=== PATIENT | male | born 1990 | race American Indian/Alaskan Native ===

== ENCOUNTER 2017-02-13 03:04 | Emergency (ER) | payer SELFPAY ==
[2017-02-13 04:24] LABS: Basophils % (Auto) 0.4 % (0.0-1.8); Eosinophils % (Auto) 3.1 % (0.0-4.3); Hematocrit 39.3 % (35.5-45.6); Hemoglobin 12.8 gm/dl (11.8-15.2); Mean Corpuscular HGB Conc 33 % (32-34); Mean Corpuscular Hemoglobin 29 pg (28-32); Mean Corpuscular Volume 89 fl (84-94); Platelet Count 135 K/mm3 (140-440); Red Blood Count 4.42 M/mm3 (3.65-5.03); Red Cell Distribution Width 13.9 % (13.2-15.2); White Blood Count 5.5 K/mm3 (4.5-11.0)
[2017-02-13 04:32] LABS: Anion Gap 14 mmol/L; BUN/Creatinine Ratio 22.85; Blood Urea Nitrogen 16 mg/dL (9-20); Calcium 8.7 mg/dL (8.4-10.2); Carbon Dioxide 26 mmol/L (22-30); Chloride 98.6 mmol/L (98-107); Glucose 127 mg/dL (75-100); Sodium 135 mmol/L (137-145)
--- NOTE | 2017-02-13 07:40 | Emergency Department Report ---
Chief Complaint: Skin/Abscess/Foreign Body Stated Complaint: ABSCESS Time Seen by Provider: 02/13/17 07:30 - HPI History of Present Illness: Patient here reported that he has a seat now to his rectal area secondary to anal fistula. He reports that this is been going on for over a year he had surgery in the past and reportedly has been draining. He said that he has not seen a doctor for a while because he was not ensured but now he has insurance. Denies any fever or chills. Denies any nausea or vomiting. Pain to rectal area is 8 out of 10.He has a history of HIV. - ROS Review of Systems: All systems are negative unless otherwise stated in HPI above - Exam Vital Signs: Vital Signs 02/13/17 03:17 Temperature 98.1 F Pulse Rate 88 Respiratory 20 Rate Blood Pressure 99/61 O2 Sat by Pulse 97 Oximetry Physical Exam: Gen.: This is a 18-year-old male well-nourished well-developed in no acute distress. Abdomen: Soft, positive bowel sounds in all quadrant. : Rectal area with abscess with drainage noted to pad. MSE screening note: Focused history and physical exam performed. Due to findings the following was ordered:See MDM ED Medical Decision Making - Lab Data Result diagrams: 02/13/17 03:43 02/13/17 03:43 Lab Results 02/13/17 02/13/17 Range/Units 03:43 03:43 WBC 5.5 (4.5-11.0) K/mm3 RBC 4.42 (3.65-5.03) M/mm3 Hgb 12.8 (11.8-15.2) gm/dl Hct 39.3 (35.5-45.6) % MCV 89 (84-94) fl MCH 29 (28-32) pg MCHC 33 (32-34) % RDW 13.9 (13.2-15.2) % Plt Count 135 L (140-440) K/mm3 Lymph % (Auto) 50.6 H (13.4-35.0) % [place] % (Auto) 7.0 (0.0-7.3) % Eos % (Auto) 3.1 (0.0-4.3) % Baso % (Auto) 0.4 (0.0-1.8) % Lymph # 2.8 (1.2-5.4) K/mm3 [place] # 0.4 (0.0-0.8) K/mm3 Eos # 0.2 (0.0-0.4) K/mm3 Baso # 0.0 (0.0-0.1) K/mm3 Seg Neutrophils % 38.9 L (40.0-70.0) % Seg Neutrophils # 2.1 (1.8-7.7) K/mm3 Sodium 135 L (137-145) mmol/L Potassium 4.0 (3.6-5.0) mmol/L Chloride 98.6 (98-107) mmol/L Carbon Dioxide 26 (22-30) mmol/L Anion Gap 14 mmol/L BUN 16 (9-20) mg/dL Creatinine 0.7 L (0.8-1.5) mg/dL Estimated GFR > 60 ml/min BUN/Creatinine Ratio 22.85 % Glucose 127 H (75-100) mg/dL Calcium 8.7 (8.4-10.2) mg/dL - Medical Decision Making MDM: Screened by provider. Patient is Stable. Labs ordered. Pain medicine percocet 5/325 mg 2 tabs. To be Seen by Attending. ED Disposition for MSE Condition: Stable Referrals: PRIMARY CARE, [Primary Care Provider] - 3-5 Days
[2017-02-13] MEDS ORDERED: PERCOCET 5/325 PO ONE (07:42)
--- NOTE | 2017-02-13 08:05 | Emergency Department Report ---
ED General Adult HPI - General Chief complaint: Skin/Abscess/Foreign Body Stated complaint: ABSCESS Time Seen by Provider: 02/13/17 07:30 Source: patient Mode of arrival: Ambulatory Limitations: No Limitations - History of Present Illness Initial comments: Patient is a 26-year-old male past medical history of HIV who presents with anal pain. Patient states that his symptoms have been going on for the last 5 days. Patient states pain is intermittently been going on on for the last month. He states the pain is a burning achy type of pain it's a 9 out of 10 sitting down makes it worse lying on his stomach makes it better. Patient states that he hasn't followed up with a doctor he had a previous history of an anal fistula and he has not followed up because he has not had insurance. Patient states that he now has insurance now. He states that his rectal abscess assessment draining. He denies having any fevers or chills. - Related Data Previous Rx's Medication Instructions Recorded Last Taken Type HYDROcodone/APAP 5-325 [Hemet 1 each PO Q6HR PRN #13 tablet 02/13/17 Unknown Rx 5/325] Sulfamethoxazole/Trimethoprim 1 each PO BID #10 tablet 02/13/17 Unknown Rx [Bactrim DS TAB] metroNIDAZOLE [Flagyl] 500 mg PO Q12HR #10 tab 02/13/17 Unknown Rx Allergies Allergy/AdvReac Type Severity Reaction Status Date / Time No Known Allergies Allergy Verified 02/13/17 08:29 ED Review of Systems ROS: Stated complaint: ABSCESS Other details as noted in HPI Constitutional: denies: chills, fever Eyes: denies: eye pain, eye discharge, vision change ENT: denies: ear pain, throat pain Respiratory: denies: cough, shortness of breath, wheezing Cardiovascular: denies: chest pain, palpitations Endocrine: no symptoms reported Gastrointestinal: other (anal pain and anal discharge). denies: abdominal pain , nausea, diarrhea Genitourinary: denies: urgency, dysuria Musculoskeletal: denies: back pain, joint swelling, arthralgia Skin: denies: rash, lesions Neurological: denies: headache, weakness, paresthesias Psychiatric: denies: anxiety, depression Hematological/Lymphatic: denies: easy bleeding, easy bruising ED Past Medical Hx - Past Medical History Previous Medical History?: Yes Hx HIV: Yes Additional medical history: ANAL FISTULA - Surgical History Past Surgical History?: Yes Additional Surgical History: ANAL FISTULA REPAIR - Social History Smoking Status: Current Every Day Smoker Substance Use Type: Marijuana - Medications Home Medications: Home Medications Medication Instructions Recorded Confirmed Last Taken Type HYDROcodone/APAP 5-325 [Hemet 1 each PO Q6HR PRN #13 tablet 02/13/17 Unknown Rx 5/325] Sulfamethoxazole/Trimethoprim 1 each PO BID #10 tablet 02/13/17 Unknown Rx [Bactrim DS TAB] metroNIDAZOLE [Flagyl] 500 mg PO Q12HR #10 tab 02/13/17 Unknown Rx ED Physical Exam - General Limitations: No Limitations General appearance: alert, in no apparent distress - Head Head exam: Present: atraumatic, normocephalic - Eye Eye exam: Present: normal appearance - ENT ENT exam: Present: mucous membranes moist - Neck Neck exam: Present: normal inspection - Respiratory Respiratory exam: Present: normal lung sounds bilaterally. Absent: respiratory distress - Cardiovascular Cardiovascular Exam: Present: regular rate, normal rhythm. Absent: systolic murmur, diastolic murmur, rubs, gallop - GI/Abdominal GI/Abdominal exam: Present: soft, normal bowel sounds - Rectal Rectal exam: Present: other (rectal abscess with active drainage) - Extremities Exam Extremities exam: Present: normal inspection - Back Exam Back exam: Present: normal inspection - Neurological Exam Neurological exam: Present: alert, oriented X3 - Psychiatric Psychiatric exam: Present: normal affect, normal mood - Skin Skin exam: Present: warm, dry, intact, normal color. Absent: rash ED Course Vital Signs 02/13/17 02/13/17 03:17 07:50 Temperature 98.1 F Pulse Rate 88 Respiratory 20 16 Rate Blood Pressure 99/61 O2 Sat by Pulse 97 Oximetry - Consultations Consultation #1: 02/13/17 11:39 Discussed with patient has a anal fistula he states that this is a chronic condition. And a can be handled as an outpatient via colorectal surgery. He also states that admission is not warranted in this case. ED Medical Decision Making - Lab Data Result diagrams: 02/13/17 03:43 02/13/17 03:43 Lab Results 02/13/17 02/13/17 Range/Units 03:43 03:43 WBC 5.5 (4.5-11.0) K/mm3 RBC 4.42 (3.65-5.03) M/mm3 Hgb 12.8 (11.8-15.2) gm/dl Hct 39.3 (35.5-45.6) % MCV 89 (84-94) fl MCH 29 (28-32) pg MCHC 33 (32-34) % RDW 13.9 (13.2-15.2) % Plt Count 135 L (140-440) K/mm3 Lymph % (Auto) 50.6 H (13.4-35.0) % [place] % (Auto) 7.0 (0.0-7.3) % Eos % (Auto) 3.1 (0.0-4.3) % Baso % (Auto) 0.4 (0.0-1.8) % Lymph # 2.8 (1.2-5.4) K/mm3 [place] # 0.4 (0.0-0.8) K/mm3 Eos # 0.2 (0.0-0.4) K/mm3 Baso # 0.0 (0.0-0.1) K/mm3 Seg Neutrophils % 38.9 L (40.0-70.0) % Seg Neutrophils # 2.1 (1.8-7.7) K/mm3 Sodium 135 L (137-145) mmol/L Potassium 4.0 (3.6-5.0) mmol/L Chloride 98.6 (98-107) mmol/L Carbon Dioxide 26 (22-30) mmol/L Anion Gap 14 mmol/L BUN 16 (9-20) mg/dL Creatinine 0.7 L (0.8-1.5) mg/dL Estimated GFR > 60 ml/min BUN/Creatinine Ratio 22.85 % Glucose 127 H (75-100) mg/dL Calcium 8.7 (8.4-10.2) mg/dL - Radiology Data Radiology results: report reviewed, image reviewed CT abdomen and pelvis with contrast: CT scan shows right anal fistula. And nonspecific circumferential thickening anal tumor cannot be excluded. - Medical Decision Making Chief medical diagnosis: Anal rectal abscess Differential diagnosis: Anal fistula, folliculitis, anal cellulitis CBC, CMP, IV pain medication and CT scan of abdomen and pelvis. CT scan shows anal fistula. Discussed with Dr. Fiore patient does not need any acute surgical intervention, he can follow up as an outpatient and see a colorectal surgeon. Discussed while patient he agrees to plan. Patient's last CD4 count was 710 PATIENT HOME FOR FOLLOW-UP AND GIVE HIM ANTIBIOTICS AND PAIN MEDICINE FOR THE PAIN. Patient agrees with plan. Critical care attestation.: If time is entered above; I have spent that time in minutes in the direct care of this critically ill patient, excluding procedure time. ED Disposition Clinical Impression: HIV (human immunodeficiency virus infection), Anal fistula Disposition: TO HOME OR SELFCARE Is pt being admited?: No Does the pt Need Aspirin: No Condition: Stable Instructions: Anorectal Abscess and Anal Fistula (ED) Prescriptions: HYDROcodone/APAP 5-325 [Hemet 5/325] 1 each PO Q6HR PRN #13 tablet PRN Reason: Pain metroNIDAZOLE [Flagyl] 500 mg PO Q12HR #10 tab Sulfamethoxazole/Trimethoprim [Bactrim DS TAB] 1 each PO BID #10 tablet Referrals: PRIMARY CARE, [Primary Care Provider] - 3-5 Days
[2017-02-13 08:20] LABS: Bilirubin,Urine NEG (Negative); Blood,Urine NEG (Negative); Ketones,Urine NEG (Negative); Leukocyte Esterase,Urine NEG (Negative); Mucus,Urine 1+ /HPF; Nitrite,Urine NEG (Negative); Protein,Urine <15 mg/dL mg/dL (Negative)
[2017-02-13] MEDS ORDERED: NACL ONE (08:32)
--- NOTE | 2017-02-13 11:12 | Cat Scan Report ---
CT ABDOMEN AND PELVIS WITH CONTRAST: 02/13/17 03:04:00 CLINICAL: Rectal pain and history of anal fistula. COMPARISON: None. TECHNIQUE: Volumetric acquisition and 1.25 millimeter scan reconstructions after the uneventful intravenous injection of 100 cc Omnipaque 300. Consent was obtained prior to the administration of contrast. Oral contrast was not given. FINDINGS: Abdomen: Normal liver, bile ducts and gallbladder. Normal stomach, duodenum, pancreas and spleen. Normal adrenal glands and kidneys. Renal collecting systems and ureters are nondilated. Normal aorta and inferior vena cava. Normal small bowel.Normal ascending, transverse and descending colon with a large volume of stool throughout the colon. Normal appendix. No mass, lymphadenopathy or ascites.No pneumoperitoneum. Pelvis: Numerous abnormal perirectal lymph nodes are identified. The largest is on the right and measures 1.4 x 1.0 cm.Circumferential anal wall thickening and a fistula track extending from the anus to the right buttock. No abscess. The rectum and sigmoid colon are normal. Normal urinary bladder, prostate and seminal vesicles. Bone windows demonstrate no suspicious bone lesion. IMPRESSION:1. A right anal fistula extending to the right buttock. 2. Nonspecific circumferential anal wall thickening. Anal tumor cannot be excluded. 3. No abscess. 4. Normal upper abdomen.
[2017-02-13 12:45] VITALS: BP 110/60
== END 2017-02-13 12:10 | disposition home or self-care (01) ==
LOC: ED 03:04
DX: K60.4 Rectal fistula (principal); Z21 Asymptomatic human immunodeficiency virus [HIV] infection status; F12.10 Cannabis abuse, uncomplicated; F17.200 Nicotine dependence, unspecified, uncomplicated; Z98.890 Other specified postprocedural states
CPT/HCPCS: 36415; 74177; 80048; 81001; 85025; 87086; 99284; Q9967